=== PATIENT | female | born 1995 | race Caucasian/White ===

== ENCOUNTER 2022-02-01 10:37 | Emergency (ER) | payer MEDICAID, OTHER ==
[~2022-02-01] VITALS: Ht 172.7 cm; Wt 72.6 kg
[2022-02-01 11:13] VITALS: BP 120/78
[2022-02-01] MEDS ORDERED: KETOROLAC TROMETH 60MG/2ML VIAL IM ONE (11:45)
[2022-02-01] MEDS ORDERED: IBUP800T27 PO (13:10)
[2022-02-01] MEDS ORDERED: BACL10TA PO (13:10)
== END 2022-02-01 13:21 | disposition home or self-care (01) ==
LOC: EDBD 10:37 → ER 10:37
DX: S16.1XXA Strain of muscle, fascia and tendon at neck level, initial encounter (principal); S39.012A Strain of muscle, fascia and tendon of lower back, initial encounter; V43.52XA Car driver injured in collision with other type car in traffic accident, initial encounter; Y93.89 Activity, other specified; Y92.89 Other specified places as the place of occurrence of the external cause; Y99.8 Other external cause status
CPT/HCPCS: 72040; 72100; 96372; 99284; J1885

== ENCOUNTER 2022-10-17 19:09 | Emergency (ER) | payer MEDICAID ==
[~2022-10-17] VITALS: Ht 162.6 cm; Wt 76.5 kg
[~2022-10-17 19:09] MED LIST: BACL10TA PO; IBUP800T27 PO
[2022-10-17] MEDS ORDERED: HYDROcodone-ACET 10/325MG TAB PO ONE (19:45)
[2022-10-17 19:52] VITALS: BP 117/46
[2022-10-17 22:00] LABS: Urine Bacteria FEW /hpf (None Seen); Urine Blood Negative /uL (Negative); Urine Hyaline Cast FEW /lpf (0 - 2); Urine Specific Gravity 1.018 (1.001-1.035); Urine WBC 10 /hpf (0 - 5)
[2022-10-17] MEDS ORDERED: HYDR-4902 PO (22:33)
[2022-10-17] MEDS ORDERED: IBUP800T26 PO (22:33)
[2022-10-17] MEDS ORDERED: NITR-87 PO (22:37)
== END 2022-10-17 22:39 | disposition left against medical advice (07) ==
LOC: ER 19:09
DX: M54.2 Cervicalgia (principal); G89.29 Other chronic pain; M54.50 Low back pain, unspecified; F17.210 Nicotine dependence, cigarettes, uncomplicated; F12.10 Cannabis abuse, uncomplicated; J45.909 Unspecified asthma, uncomplicated; Z88.6 Allergy status to analgesic agent
CPT/HCPCS: 72040; 72100; 81001